=== PATIENT | female | born 1945 | race Two or more races ===

== ENCOUNTER 2019-04-09 10:06 | Emergency (ER) | payer OTHER ==
[~2019-04-09] VITALS: Ht 154.9 cm; Wt 63.5 kg
[~2019-04-09 10:06] MED LIST: CARAFATE SU1 G/10 ML PO; NAPROXEN500 MG PO; OMEGA-31000 MG; PREVACID30 MG; PREVACID30 MG PO; PRILOSEC10 MG; PROTONIX40 MG PO; SIMVASTATIN5 MG; ZANTAC150 M1 PO
[2019-04-09] MEDS ORDERED: CRESTOR10 MG PO (10:36)
[2019-04-09] MEDS ORDERED: LOPID PO (10:37)
[2019-04-09] MEDS ORDERED: METFORMIN HCL500 MG (10:37)
[2019-04-09] MEDS ORDERED: ECOTRIN81 MG PO (10:37)
[2019-04-09] MEDS ORDERED: CENTRUM ADULTS1 EACH PO (10:38)
== END 2019-04-09 15:46 | disposition home or self-care (01) ==
LOC: ER 10:06
DX: R51 Headache (principal); M54.2 Cervicalgia; R09.81 Nasal congestion

== ENCOUNTER 2019-12-27 14:30 | Emergency (ER) | payer OTHER ==
[~2019-12-27] VITALS: Ht 157.5 cm; Wt 63.5 kg
[~2019-12-27 14:30] MED LIST changes: +CENTRUM ADULTS1 EACH PO; +CRESTOR10 MG PO; +ECOTRIN81 MG PO; +LOPID PO; +METFORMIN HCL500 MG
== END 2019-12-27 16:52 | disposition home or self-care (01) ==
LOC: ER 14:30
DX: B36.0 Pityriasis versicolor (principal)